=== PATIENT | female | born 1990 | race Caucasian/White ===

== ENCOUNTER 2017-01-24 12:19 | Emergency (ER) | payer BC ==
[2017-01-24 12:49] LABS: APPEARANCE HAZY (CLEAR); BILIRUBIN NEGATIVE (NEGATIVE); COLOR YELLOW (YELLOW); GLUCOSE NEGATIVE (NEGATIVE); KETONE NEGATIVE (NEGATIVE); LEUKOCYTE ESTERASE NEGATIVE (NEGATIVE); NITRITE NEGATIVE (NEGATIVE); PROTEIN NEGATIVE (NEGATIVE); UROBILINOGEN NORMAL (NORMAL)
[2017-01-24 13:04] LABS: BACTERIA FEW /hpf (NONE SEEN); EPITHELIAL CELLS 0-5 /hpf (0-5); RED CELLS - URINE 0-5 /hpf (0-5); WHITE CELLS - URINE OCC /hpf (0-5)
[2017-01-24 13:07] LABS: HCG SERUM NEGATIVE (NEGATIVE)
[2017-01-24 13:42] LABS: BASOPHILS 0.2 % (0-2); EOSINOPHILS 2.7 % (0-7); HEMATOCRIT 40.9 % (36.0-48.0); HEMOGLOBIN 13.6 g/dL (12-16); IMMATURE GRANULOCYTES 0.2 % (0-5); LYMPHOCYTES 23.3 % (15-50); MCH 29.4 pg (26.0-34.0); MCHC 33.3 g/dL (31.0-37.0); MCV 88.5 fL (80.0-100.0); MEAN PLATELET VOLUME 11.7 fL (7.4-10.4); MONOCYTES 7.9 % (2-11); NEUTROPHILS 65.7 % (40-80); PLATELET COUNT 331 10x3/uL (130-400); RBC 4.62 10x6/uL (4.00-5.40); WBC 8.8 10x3/uL (4.8-10.8)
[2017-01-24 13:52] LABS: ALBUMIN 3.6 g/dL (3.4-5.0); ALKALINE PHOSPHATASE 66 U/L (46-116); ALT (SGPT) 24 U/L (10-68); BILIRUBIN - TOTAL 0.37 mg/dL (0.2-1.3); CALC OSMOLALITY 276 mosm/kg (275-300); CALCIUM 8.3 mg/dL (8.5-10.1); CARBON DIOXIDE 27.4 mmol/L (21.0-32.0); CHLORIDE - SERUM 104 mmol/L (98-107); CREATININE - SERUM 0.7 mg/dL (0.6-1.3); GLUCOSE 92 mg/dL (74-106); POTASSIUM - SERUM 3.7 mmol/L (3.5-5.1); PROTEIN - SERUM 7.7 g/dL (6.4-8.2); SODIUM 139 mmol/L (136-145); UREA NITROGEN 11 mg/dL (7-18); eGFR NON AFRICAN AMERICAN > 90 mL/min (90-120)
== END 2017-01-24 14:12 | disposition home or self-care (01) ==
LOC: D.ER 12:19
PROVIDERS: Emergency Medicine; Physician Assistant
DX: R10.31 Right lower quadrant pain (principal)

== ENCOUNTER 2018-10-29 14:04 | Emergency (ER) | payer BC ==
[~2018-10-29] VITALS: Ht 172.7 cm; Wt 113.6 kg
[2018-10-29 14:29] VITALS: Ht 172.7 cm; Wt 113.6 kg
[2018-10-29 14:57] LABS: APPEARANCE CLEAR (CLEAR); BILIRUBIN NEGATIVE (NEGATIVE); COLOR YELLOW (YELLOW); GLUCOSE NEGATIVE (NEGATIVE); KETONE NEGATIVE (NEGATIVE); NITRITE NEGATIVE (NEGATIVE); PROTEIN NEGATIVE (NEGATIVE); UROBILINOGEN NORMAL (NORMAL)
[2018-10-29] MEDS ORDERED: MONODOX100 MG PO (19:03)
[2018-10-29 19:59] VITALS: BP 138/94
== END 2018-10-29 20:00 | disposition home or self-care (01) ==
LOC: D.ER 14:04
PROVIDERS: Emergency Medicine
DX: R30.0 Dysuria (principal); R35.0 Frequency of micturition

== ENCOUNTER → 2020-07-30 14:08 | Outpatient (CLI) | payer OTHER ==
[2020-07-08 22:44] VITALS: BMI 37.1
[~2020-07-30 14:08] MED LIST: MACROBID100 MG PO; MONODOX100 MG PO; ZOFRAN ODT4 MG/UDTAB PO
== END | disposition home or self-care (01) ==
LOC: D.US 14:08
PROVIDERS: ATTEND Emergency Medicine
DX: R10.12 Left upper quadrant pain (principal)